=== PATIENT | male | born 1965 | race Caucasian/White ===

== ENCOUNTER 2023-05-22 23:25 | Inpatient (IN) | payer OTHER ==
[2023-05-23 00:19] VITALS: BMI 25.2
[2023-05-23] MEDS ORDERED: GLUCAGON 1 MG/VIAL IM PRN (01:03)
[2023-05-23] MEDS ORDERED: D50W 25 GM/50 ML SYRINGE IV PRN (01:03)
[2023-05-23] MEDS ORDERED: D10W 125 ML IV PRN (01:07)
[2023-05-23] MEDS ORDERED: MORPHINE 2 MG/ML SYR IV PRN (01:08)
[2023-05-23] MEDS ORDERED: NITROGLYCERIN 0.4 MG/TAB SL PRN (01:08)
--- NOTE | 2023-05-23 01:09 | P.HP ---
Certification for Inpatient Patient admitted to: Inpatient With expected LOS: >2 Midnights Practitioner: I am a practitioner with admitting privileges, knowledge of patient current condition, hospital course, and medical plan of care. Services: Services provided to patient in accordance with Admission requirements found in Title 42 Section 412.3 of the Code of Federal Regulations Patient History Date of Service: 05/23/23 Reason for admission: Chest pain unstable angina History of Present Illness: Patient is 58 years of age with a history of coronary artery disease and a stent placement in 2013 started having some palpitations and chest discomfort for the past 3 days has become progressively worse recently prior to that he was doing fine patient denies any shortness of breath former smoker Allergies ceftriaxone Allergy (Verified 05/22/23 23:51) Anaphylaxis Penicillins Allergy (Verified 05/22/23 23:51) Shortness of breath Home Medications: Amitriptyline HCl 100 mg PO BEDTIME 05/23/23 Baclofen 20 mg PO SEECOM 05/23/23 Clopidogrel Bisulfate [Plavix*] 75 mg PO DAILY 05/23/23 Divalproex Sodium 500 mg PO DAILY 05/23/23 Docusate Sodium 100 mg PO BID 05/23/23 Famotidine 20 mg PO DAILY 05/23/23 Furosemide 20 mg PO DAILY 05/23/23 Hydrocodone 5/APAP 325 [[place] 5/325*] 1 tab PO BID 05/23/23 Insulin Glargine-Yfgn 50 unit SQ BID 05/23/23 Insulin Regular, Human [Novolin R] 100 unit IJ SEECOM 05/23/23 Lactulose 30 ml PO Q12H 05/23/23 Lisinopril [Zestril] 2.5 mg PO DAILY 05/23/23 Mag Hydroxide 8% [Milk Of Magnesia] 400 mg PO Q24H PRN 05/23/23 Metoprolol Succinate [Toprol Xl*] 50 mg PO BEDTIME 05/23/23 Rivaroxaban [Xarelto] 20 mg PO DAILY 05/23/23 Zolpidem Tartrate [Zolpidem Tartrate ER] 12.5 mg PO BEDTIME 05/23/23 polyethylene glycoL 3350 [Polyethylene Glycol 3350] 17 gm PO DAILY 05/23/23 - Past Medical/Surgical History Has patient received pneumonia vaccine in the past: Yes -: Stroke with right-sided hemiparesis -: Coronary artery disease -: Diabetes -: Hypertension -: Hyperlipidemia -: Stent - Social History Smoking Status: Former smoker Review of Systems 10-point ROS is otherwise unremarkable Physical Examination - Vital Signs Temperature: 98.4 F Blood Pressure: 166/73 Pulse: 111 Respirations: 18 Pulse Ox (%): 98 - Physical Exam General: Alert, Oriented x3 HEENT: Atraumatic Neck: Supple Respiratory: Clear to auscultation bilaterally, Normal air movement Cardiovascular: No edema, Regular rate/rhythm, Normal S1 S2 Gastrointestinal: Normal bowel sounds, Soft and benign Musculoskeletal: No clubbing, No swelling Integumentary: No rashes, No breakdown Neurological: Other (Patient has right-sided hemiparesis from a formal stroke) Assessment and Plan - Problems (Diagnosis) (1) Unstable angina Current Visit: Yes Status: Acute Plan: Patient is 58 years of age admitted with chest pain and palpitations for the past 3 days has become worse recently history of coronary artery disease stent placement diabetes hypertension he is a former smoker currently his A1c is very elevated labs reviewed normal renal function patient was transferred from [facility] plan to admit start on Lovenox beta-blockers aspirin to his insulin and some of his home meds telemetry cardiology consult lipid profile - Advance Directives Does patient have a Living Will: No Does patient have a Durable POA for Healthcare: No
[2023-05-23] MEDS: ENOXAPARIN 100 MG/ML SYR SQ SCH (01:45)
[2023-05-23] MEDS: ASPIRIN EC 81 MG TAB PO SCH (01:45)
[2023-05-23] MEDS: AMITRIPTYLINE 50 MG TAB PO SCH (01:46)
[2023-05-23] MEDS: lisinopriL 5 MG TAB PO SCH (01:46)
[2023-05-23] MEDS: METOPROLOL XL 50 MG TAB PO SCH (01:46)
[2023-05-23] MEDS: ZOLPIDEM TARTRATE 10 MG TABLET PO PRN (02:55)
--- NOTE | 2023-05-23 07:13 | RAD REPORT ---
EXAM DESCRIPTION: RAD - Chest Single View - 05/23/2023 7:02 am CLINICAL HISTORY: Chest pain COMPARISON: No comparisons FINDINGS: Lines: None. Lungs: No evidence of edema or pneumonia. Pleural: No significant pleural effusions or pneumothorax. Cardiac: The heart size is within normal limits. Mediastinum: Within normal limits. Bones: No acute fractures. Other: None IMPRESSION: No acute cardiopulmonary disease.
[2023-05-23 07:22] LABS: Protime INR 1.37
[2023-05-23 07:40] LABS: Albumin 2.9 g/dL (3.4-5.0); Albumin/Globulin Ratio 0.6 (1.1-1.8); Anion Gap 8.8 mEq/L (5.0-15.0); Bilirubin Total 0.4 mg/dL (0.2-1.0); Globulin 4.8 g/dL (2.3-3.5); Potassium 3.8 mEq/L (3.5-5.1); Protein, Total 7.7 g/dL (6.4-8.2); Troponin High Sensitivity 16.8 pg/mL (<58.9)
[2023-05-23] MEDS: FUROSEMIDE 20 MG TABLET PO SCH (08:19)
[2023-05-23] MEDS: FAMOTIDINE 20 MG TAB PO SCH (08:20)
[2023-05-23] MEDS: DIVALPROEX DR 500MG TAB PO SCH (08:21)
[2023-05-23] MEDS: DOCUSATE NA 100 MG CAP PO SCH (08:21)
[2023-05-23] MEDS: INSULIN REGULAR (HUMAN) 100 UNIT/ML SQ SCH (09:58)
[2023-05-23] MEDS: INSULIN GLARGINE 100 UNIT/ML SQ SCH (09:58)
--- NOTE | 2023-05-23 17:29 | P.PN ---
Subjective Chief Complaint: Chest pain unstable angina Physical Examination - Vital Signs Temperature: 98.2 F Blood Pressure: 124/59 Pulse: 89 Respirations: 18 Pulse Ox (%): 97 - Studies Laboratory Data (last 24 hrs) 05/23/23 05/23/23 07:02 07:02 PT 14.9 H INR 1.37 Sodium 139 Potassium 3.8 BUN 13 Creatinine 0.82 Glucose 192 H Total Bilirubin 0.4 AST 8 L ALT 27 Alkaline Phosphatase 94 Triglycerides 111 Cholesterol 63 HDL Cholesterol 21 L Cholesterol/HDL Ratio 3.00 Assessment & Plan - Advance Directives Does patient have a Living Will: No Does patient have a Durable POA for Healthcare: No
[2023-05-23] MEDS: HYDROCODONE/APAP 5/325 MG TAB PO PRN (17:57)
[2023-05-23] MEDS: ZOLPIDEM TARTRATE 10 MG TABLET PO SCH (20:43)
--- NOTE | 2023-05-24 07:01 | RAD REPORT ---
EXAM DESCRIPTION: RAD - Chest Single View - 05/24/2023 6:21 am CLINICAL HISTORY: Chest pain COMPARISON: Chest Single View dated 05/23/2023 FINDINGS: Lines: None. Lungs: No evidence of edema or pneumonia. Pleural: No significant pleural effusions or pneumothorax. Cardiac: The heart size is within normal limits. Mediastinum: Within normal limits. Bones: No acute fractures. Other: None IMPRESSION: No acute cardiopulmonary disease.
[2023-05-24 07:06] LABS: Absolute Basophils 0.1 K/uL (0-0.5); Absolute Eosinophils 0.2 K/uL (0-0.5); Absolute Lymphocytes (CBC) 4.4 K/uL (0.7-4.9); Basophils % 0.8 % (0-1.3); Eosinophils % 1.5 % (0-4.4); Hematocrit 40.1 % (39.6-49.0); Hemoglobin 13.7 g/dL (13.6-17.9); Lymphocytes % 39.2 % (15.3-44.8); MCV 86.7 fL (80-100); MPV 7.6 fL (7.6-11.3); Platelets 240 thou/uL (152-406); RBC Red Blood Cell Count 4.62 M/uL (4.33-5.43)
[2023-05-24 07:46] LABS: Albumin/Globulin Ratio 0.7 (1.1-1.8); Anion Gap 7.9 mEq/L (5.0-15.0); Bilirubin Total 0.5 mg/dL (0.2-1.0); C-Reactive Protein 10.6 mg/L (<3.00); Globulin 4.4 g/dL (2.3-3.5); Potassium 3.9 mEq/L (3.5-5.1); Protein, Total 7.4 g/dL (6.4-8.2); Troponin High Sensitivity 13.6 pg/mL (<58.9)
--- NOTE | 2023-05-24 09:25 | P.PN ---
Subjective Date of Service: 05/24/23 Chief Complaint: Chest pain unstable angina Subjective: No C/O voiced, Improving Review of Systems 10-point ROS is otherwise unremarkable Cardiovascular: Chest Pain, Palpitations Physical Examination - Vital Signs Temperature: 98.2 F Blood Pressure: 115/51 Pulse: 90 Respirations: 16 Pulse Ox (%): 95 - Physical Exam General: Alert, In no apparent distress, Oriented x3 HEENT: Atraumatic, Normocephalic Neck: 2+ carotid pulse no bruit Respiratory: Clear to auscultation bilaterally, Normal air movement Cardiovascular: Normal pulses Capillary refill: <2 Seconds Gastrointestinal: Soft and benign Musculoskeletal: Other (right hemiparesis/contracture) Integumentary: Other (heel protectors continue) Neurological: Normal speech, Abnormal strength, Abnormal tone Lymphatics: No axilla or inguinal lymphadenopathy External genitalia: Deferred Rectal: Deferred - Studies Laboratory Data (last 24 hrs) 05/24/23 05/24/23 06:52 06:52 WBC 11.30 H Hgb 13.7 Hct 40.1 Plt Count 240 Sodium 135 L Potassium 3.9 BUN 14 Creatinine 0.88 Glucose 143 H Magnesium 2.0 Total Bilirubin 0.5 AST 10 L ALT 24 Alkaline Phosphatase 83 Assessment And Plan - Plan Assessment and Plan - Problems (Diagnosis) (1) Unstable angina Current Visit: Yes Status: Acute Plan: Patient is 58 years of age admitted with chest pain and palpitations for the past 3 days. History of coronary artery disease, stent placement, diabetes, hypertension. Left sided CVA ten years ago. Right upper and lower deficits. He is a former smoker. Transferred from [facility]. Plan to admit, start on Lovenox,continue Nevibolol, aspirin, and place on SSI, home meds, telemetry, cardiology consult, lipid profile Discharge Plan: [facility] Plan to discharge in: 48 Hours
[2023-05-24] MEDS: ACETAMINOPHEN 500 MG TAB PO PRN (21:30)
[2023-05-25 05:39] LABS: Absolute Basophils 0.1 K/uL (0-0.5); Absolute Eosinophils 0.1 K/uL (0-0.5); Absolute Lymphocytes (CBC) 3.6 K/uL (0.7-4.9); Basophils % 0.8 % (0-1.3); Eosinophils % 1.1 % (0-4.4); Hematocrit 40.3 % (39.6-49.0); Hemoglobin 13.6 g/dL (13.6-17.9); Lymphocytes % 31.2 % (15.3-44.8); MCV 86.4 fL (80-100); MPV 7.5 fL (7.6-11.3); Platelets 200 thou/uL (152-406); RBC Red Blood Cell Count 4.66 M/uL (4.33-5.43)
[2023-05-25 06:04] LABS: Albumin/Globulin Ratio 0.7 (1.1-1.8); Anion Gap 8.8 mEq/L (5.0-15.0); Bilirubin Total 0.6 mg/dL (0.2-1.0); Globulin 4.4 g/dL (2.3-3.5); Potassium 3.8 mEq/L (3.5-5.1); Protein, Total 7.4 g/dL (6.4-8.2)
--- NOTE | 2023-05-25 10:21 | P.PN ---
Subjective Date of Service: 05/25/23 Chief Complaint: Chest pain unstable angina Admitted with chest pain, unstable angina, palpitations, normal sinus rhythm rate 64 occasional trigeminy - Physical Exam General: Alert, In no apparent distress, Oriented x3 HEENT: Atraumatic, Normocephalic Neck: 2+ carotid pulse no bruit Respiratory: Clear to auscultation bilaterally, Normal air movement Cardiovascular: Normal pulses Capillary refill: <2 Seconds Gastrointestinal: Soft and benign Musculoskeletal: Other (right hemiparesis/contracture) Integumentary: Other (heel protectors continue) Neurological: Normal speech, Abnormal strength, Abnormal tone Lymphatics: No axilla or inguinal lymphadenopathy Review of Systems per HPI Physical Examination - Vital Signs Temperature: 98.4 F Blood Pressure: 107/47 Pulse: 64 Respirations: 18 Pulse Ox (%): 96 - Studies Laboratory Data (last 24 hrs) 05/25/23 05/25/23 05:05 05:05 WBC 11.40 H Hgb 13.6 Hct 40.3 Plt Count 200 Sodium 136 Potassium 3.8 BUN 20 H Creatinine 0.90 Glucose 131 H Total Bilirubin 0.6 AST 16 ALT 24 Alkaline Phosphatase 84 Assessment And Plan - Plan Assessment plan Unstable angina Chest pain rule out [place] Palpitations Telemetry, Lovenox 1 mg/kg, card consult, Transferred from [facility]. Plan to admit, start on Lovenox,continue Nevibolol, aspirin, and place on SSI, home meds, telemetry, 3/4 NPO stress ordered History of coronary artery disease, PCI stent placement HTN resume home mesds diabetes SSI, resume home meds HX Left sided CVA ten years ago. Right upper and lower deficits. He is a former smoker Full code diet [facility] Discharge Plan: Home - Code Status/Comfort Care Code Status: Full Code Critical Care: No Time Spent Managing PTS Care (In Minutes): 35
--- NOTE | 2023-05-25 11:32 | P.CNS ---
Date of Consult: 05/25/23 Chief Complaint: Chest pain unstable angina History of Present Illness: Patient with PMH of CAD s/p PCI 2013, also he got history of palpitations but not officially diagnosed with AF, Stroke back in with right side paralysis, lives in a [facility], presented with palpitations that has been going on for few days associated with some chest tightness, denies any other cardiac symptoms. patient usually follows up with Dr. Selby at [place]. Allergies apixaban [From Eliquis] Allergy (Verified 05/23/23 06:58) Hives/Rash ceftriaxone Allergy (Verified 05/22/23 23:51) Anaphylaxis Penicillins Allergy (Verified 05/22/23 23:51) Shortness of breath Home Medications: Amitriptyline HCl 100 mg PO BEDTIME 05/23/23 Baclofen 20 mg PO SEECOM 05/23/23 Clopidogrel Bisulfate [Plavix*] 75 mg PO DAILY 05/23/23 Divalproex Sodium 500 mg PO DAILY 05/23/23 Docusate Sodium 100 mg PO BID 05/23/23 Famotidine 20 mg PO DAILY 05/23/23 Furosemide 20 mg PO DAILY 05/23/23 Hydrocodone 5/APAP 325 [[place] 5/325*] 1 tab PO BID 05/23/23 Insulin Glargine-Yfgn 50 unit SQ BID 05/23/23 Insulin Regular, Human [Novolin R] 100 unit IJ SEECOM 05/23/23 Lactulose 30 ml PO Q12H 05/23/23 Lisinopril [Zestril] 2.5 mg PO DAILY 05/23/23 Mag Hydroxide 8% [Milk Of Magnesia] 400 mg PO Q24H PRN 05/23/23 Metoprolol Succinate [Toprol Xl*] 50 mg PO BEDTIME 05/23/23 Rivaroxaban [Xarelto] 20 mg PO DAILY 05/23/23 Zolpidem Tartrate [Zolpidem Tartrate ER] 12.5 mg PO BEDTIME 05/23/23 polyethylene glycoL 3350 [Polyethylene Glycol 3350] 17 gm PO DAILY 05/23/23 - Past Medical/Surgical History Diabetic: Yes -: Stroke with right-sided hemiparesis -: Coronary artery disease -: Diabetes -: Hypertension -: Hyperlipidemia -: BPH -: UTI -: Chronic embolism/thrombosis -: Seizure -: Stent - Social History Alcohol use: No CD- Drugs: No Caffeine use: Yes Place of Residence: Shelter Review of Systems 10-point ROS is otherwise unremarkable Physical Examination Temp Pulse Resp BP Pulse Ox 98.4 F 64 18 107/47 L 96 05/25/23 10:20 05/25/23 10:20 05/25/23 10:20 05/25/23 10:20 05/25/23 10:20 General: Alert, Oriented x3 HEENT: Atraumatic Neck: Supple, JVD not distended Respiratory: Clear to auscultation bilaterally Cardiovascular: No edema, Regular rate/rhythm, Normal S1 S2 Gastrointestinal: Normal bowel sounds Laboratory Data (last 24 hrs) 05/25/23 05/25/23 05:05 05:05 WBC 11.40 H Hgb 13.6 Hct 40.3 Plt Count 200 Sodium 136 Potassium 3.8 BUN 20 H Creatinine 0.90 Glucose 131 H Total Bilirubin 0.6 AST 16 ALT 24 Alkaline Phosphatase 84 - Problems (1) PVC (premature ventricular contraction) Current Visit: Yes Status: Acute Plan: patient got high PVC burden in [place]ig[place] pattern. will need ischemia evaluation since he got history of CAD agree with Toprol XL 50 mg po BID Continue Plavix 75 mg daily plan is to resume Xarelto after heart cath (patient is not sure why it is listed on his medications list) also advised patient that he need to coordinate 30 days monitor with his automation qa analyst as an outpatient. (2) Unstable angina Current Visit: Yes Status: Acute Plan: Continue ASA and Plavix Ischemia evaluation.
[2023-05-25] MEDS ORDERED: REGADENOSON 0.4 MG/5 ML SYR IV ONE (13:14)
--- NOTE | 2023-05-25 15:45 | RAD REPORT ---
EXAM DESCRIPTION: NM - Rest Stress Cardiac Imaging - 05/25/2023 1:45 pm CLINICAL HISTORY: CP COMPARISON: No comparisons TECHNIQUE: The patient was administered approximately 9.6 mCi of Tc 99m Sestamibi prior to resting S PECT imaging of the heart. The patient was then administered approximately 31 mCi of Tc 99m Sestamibi following exercise or pharmacologic stress. Multiplanar SPECT images were reviewed. FINDINGS: No stress induced ischemic defect is seen to suggest stress induced ischemia. Large areas of fixed defect involving the apex, septal wall, most of the anterior wall, and the basal aspect of t he inferior wall. The end diastolic volume is 76 ml, the end systolic volume is 37 ml, and the ejection fraction is 51 %. IMPRESSION: No evidence of stress induced ischemia. Large areas of fixed defect as above, suggestive of sequelae of remote infarcts. Left ventricular ejection fraction near the lower limit of normal, 51%.
--- NOTE | 2023-05-26 06:52 | P.PN ---
Subjective Date of Service: 05/26/23 Chief Complaint: Chest pain unstable angina Admitted with chest pain, unstable angina, palpitations, normal sinus rhythm rate 64 occasional trigeminy - Physical Exam General: Alert, In no apparent distress, Oriented x3 HEENT: Atraumatic, Normocephalic Neck: 2+ carotid pulse no bruit Respiratory: Clear to auscultation bilaterally, Normal air movement Cardiovascular: Normal pulses Capillary refill: <2 Seconds Gastrointestinal: Soft and benign Musculoskeletal: Other (right hemiparesis/contracture) Integumentary: Other (heel protectors continue) Neurological: Normal speech, Abnormal strength, Abnormal tone Lymphatics: No axilla or inguinal lymphadenopathy Review of Systems per HPI Physical Examination - Vital Signs Temperature: 98.0 F Blood Pressure: 142/68 Pulse: 73 Respirations: 20 Pulse Ox (%): 95 Assessment And Plan - Plan Assessment plan Unstable angina Chest pain rule out [place] Palpitations Telemetry, Lovenox 1 mg/kg, card consult, Transferred [facility]. Plan to admit, start on Lovenox,continue Nevibolol, aspirin, and place on SSI, home meds, telemetry, 3/ NPO stress ordered 3/ Left heart cath ischemia workup Dr. Hernandez History of coronary artery disease, PCI stent placement HTN resume home mesds diabetes SSI, resume home meds HX Left sided CVA ten years ago. Right upper and lower deficits. He is a former smoker Full code diet [facility]ic Discharge Plan: Longterm - Code Status/Comfort Care Code Status: Full Code Critical Care: No Time Spent Managing PTS Care (In Minutes): 35
[2023-05-26 06:56] LABS: Absolute Eosinophils 0.1 K/uL (0-0.5); Absolute Lymphocytes (CBC) 3.1 K/uL (0.7-4.9); Basophils % 0.6 % (0-1.3); Eosinophils % 1.8 % (0-4.4); Hematocrit 38.2 % (39.6-49.0); Hemoglobin 12.9 g/dL (13.6-17.9); Lymphocytes % 38.8 % (15.3-44.8); MCV 86.7 fL (80-100); MPV 7.9 fL (7.6-11.3); Platelets 184 thou/uL (152-406)
--- NOTE | 2023-05-26 07:02 | TREADPHA ---
DX: CHEST PAIN Date of Study: 05/25/2023 Ht: 6' 2 " Wt: 196 lb 5 oz Consulting Physician: DESTINEE MEDICATIONS: ASPIRIN, NORCO, ELAVIL, LOVENOX, NOVOLIN-R, PRINIVIL, NITROSTAT, TOPROL XL HISTORY: TWO CARDIAC STENTS TEN YEARS AGO. STROKE RIGHT SIDED PARALYSIS. DIABETES MELLITUS, HYPERTENSION, HYPERLIPIDEMIA PHYSICIAL EXAMINATION: RESTING B.P.: 148/76 RESTING H.R.: 98 RESTING EKG: NORMAL SINUS RHYTHM, INCOMPLETE RIGHT BUNDLE BRANCH BLOCK PROTOCOL: PHARMACOLOGIC EXERCISE TIME: 3:30 B.P. AT [place] STRESS: 133/49 IMPRESSION: LEXISCAN STRESS TEST PREFORMED ORDERED. CARDIOLITE INJECTED PER PROTOCOL. NO CHEST PAIN, NO SUPRAVENTRICULAR TACHYCARDIA, NO VENTRICULAR TACHYCARDIA, PREMATURE VENTRICULAR COMPLEXES NOTED PRE STRESS TESTM DURING AND POST. NO ELECTROCARDIOGRAM CHANGES WITH LEXISCAN.
[2023-05-26 07:14] LABS: Albumin 2.9 g/dL (3.4-5.0); Albumin/Globulin Ratio 0.7 (1.1-1.8); Anion Gap 8.6 mEq/L (5.0-15.0); Bilirubin Total 0.5 mg/dL (0.2-1.0); Globulin 4.2 g/dL (2.3-3.5); Potassium 3.6 mEq/L (3.5-5.1); Protein, Total 7.1 g/dL (6.4-8.2)
--- NOTE | 2023-05-26 11:03 | P.DS ---
Admission Date: 05/22/23 Discharge Date: 05/26/23 Disposition: ROUTINE DISCHARGE Discharge Condition: GOOD Reason for Admission: Chest pain unstable angina Brief History of Present Illness: 58 years of age with a history of hypertension, CAD, diabetes, hyperlipidemia, previous PCI coronary artery disease and a stent placement in 2013 started having some palpitations and chest discomfort for the past 3 days has become progressively worse recently prior to that he was doing fine patient denies any shortness of breath former smoker General: Alert, Oriented x3 HEENT: Atraumatic Neck: Supple Respiratory: Clear to auscultation bilaterally, Normal air movement Cardiovascular: No edema, Regular rate/rhythm, Normal S1 S2 Gastrointestinal: Normal bowel sounds, Soft and benign Musculoskeletal: No clubbing, No swelling Integumentary: No rashes, No breakdown Neurological: Other (Patient has right-sided hemiparesis from a formal stroke) Hospital Course: 58 year-old male patient with a past medical history of CVA, hypertension, hyperlipidemia, CAD, diabetes, prior stent placement presented with chest pain. Was noted to have unstable angina, abnormal EKG.Condition improved with therapeutic Lovenox 1 mg/kg, aspirin, statin, beta-ajay. Was evaluated by cardiology Dr. Wu had a nuclear stress test, per cardiology was started on Plavix 75 daily, metoprolol XL 50 twice daily, resume Xarelto after cardiac cath. Patient tolerating diet, stable for discharge to home with follow-up appointment with primary care physician, follow-up with cardiology 1 to 2 weeks after discharge PROBLEM: Unstable angina Abnormal EKG-PVCs with trigeminy pattern Post stress test normal sinus rhythm with incomplete right bundle branch block, noted PVCs before and after stress test. With no EKG changes with stress test. Continue Toprol 50 , Plavix 75 daily, Resume Xarelto 20 mg daily Start aspirin 81 mg daily Continue home medicines as previously prescribed Follow-up with cardiology in [address] Selby at [place] GOAL: Clear understanding of disease process INSTRUCTIONS: Physician Discharge Instructions: -Follow-up with PCP in 1 to 2 weeks -Please call Dr. Tesfaye at [phone] if any questions regarding hospital stay -Please call nursing station at [phone] if any nursing or medication questions -Return to the emergency room if symptoms worsen Diet: ADA, low sodium Activity: Fall precautions Vital Signs/Physical Exam: Temp Pulse Resp BP Pulse Ox 99.3 F 65 14 112/55 L 95 05/26/23 08:00 05/26/23 09:38 05/26/23 08:00 05/26/23 09:38 05/26/23 08:00 Laboratory Data at Discharge: WBC 8.10 thou/uL (4.3-10.9) 05/26/23 06:15 Hgb 12.9 g/dL (13.6-17.9) L 05/26/23 06:15 Hct 38.2 % (39.6-49.0) L 05/26/23 06:15 Plt Count 184 thou/uL (152-406) 05/26/23 06:15 PT 14.9 SECONDS (9.5-12.5) H 05/23/23 07:02 INR 1.37 05/23/23 07:02 Sodium 136 mEq/L (136-145) 05/26/23 06:15 Potassium 3.6 mEq/L (3.5-5.1) 05/26/23 06:15 BUN 18 mg/dL (7-18) 05/26/23 06:15 Creatinine 0.83 mg/dL (0.70-1.30) 05/26/23 06:15 Glucose 151 mg/dL (74-106) H 05/26/23 06:15 Magnesium 2.0 mg/dL (1.6-2.4) 05/24/23 06:52 Total Bilirubin 0.5 mg/dL (0.2-1.0) 05/26/23 06:15 AST 16 U/L (15-37) 05/26/23 06:15 ALT 32 U/L (16-61) 05/26/23 06:15 Alkaline Phosphatase 81 U/L (45-117) 05/26/23 06:15 Triglycerides 111 mg/dL (<150) 05/23/23 07:02 Cholesterol 63 mg/dL (<200) 05/23/23 07:02 HDL Cholesterol 21 mg/dL (40-60) L 05/23/23 07:02 Cholesterol/HDL Ratio 3.00 05/23/23 07:02 Home Medications: Amitriptyline HCl 100 mg PO BEDTIME 05/23/23 Baclofen 20 mg PO SEECOM 05/23/23 Clopidogrel Bisulfate [Plavix*] 75 mg PO DAILY 05/23/23 Divalproex Sodium 500 mg PO DAILY 05/23/23 Docusate Sodium 100 mg PO BID 05/23/23 Famotidine 20 mg PO DAILY 05/23/23 Furosemide 20 mg PO DAILY 05/23/23 Hydrocodone 5/APAP 325 [[place] 5/325*] 1 tab PO BID 05/23/23 Insulin Glargine-Yfgn 50 unit SQ BID 05/23/23 Insulin Regular, Human [Novolin R] 100 unit IJ SEECOM 05/23/23 Lactulose 30 ml PO Q12H 05/23/23 Lisinopril [Zestril] 2.5 mg PO DAILY 05/23/23 Mag Hydroxide 8% [Milk Of Magnesia*] 400 mg PO Q24H PRN 05/23/23 Metoprolol Succinate [Toprol Xl*] 50 mg PO BEDTIME 05/23/23 Rivaroxaban [Xarelto] 20 mg PO DAILY 05/23/23 Zolpidem Tartrate [Zolpidem Tartrate ER] 12.5 mg PO BEDTIME 05/23/23 polyethylene glycoL 3350 [Polyethylene Glycol 3350] 17 gm PO DAILY 05/23/23 Aspirin [Aspirin EC 81 MG] 162 mg PO DAILY #30 tab 05/25/23 New Medications: Aspirin [Aspirin EC 81 MG] 162 mg PO DAILY #30 tab Physician Discharge Instructions: -DC IV and DC back to [facility] -Follow-up with PCP in 1 to 2 weeks -Follow-up with Cardiology in 1 to 2 weeks -Please call Dr. Tesfaye at [phone] if any questions regarding hospital stay -Please call nursing station at [phone] if any nursing or medication questions -Return to the emergency room if symptoms worsen Diet: AHA Activity: Fall precautions Followup: Kyler Selby MD [Primary Care Provider] - Time spent managing pt's care (in minutes): 55
[2023-05-26 12:05] VITALS: BP 107/47; TEMP 98.4
[2023-05-26 12:32] VITALS: O2SAT 95
== END 2023-05-26 09:55 | DRG 303 ==
LOC: 2ND 23:25
PROVIDERS: ADMIT Hospitalist; ATTEND Hospitalist
DX: I25.110 Atherosclerotic heart disease of native coronary artery with unstable angina pectoris (principal); I69.351 Hemiplegia and hemiparesis following cerebral infarction affecting right dominant side; I10 Essential (primary) hypertension; E78.5 Hyperlipidemia, unspecified; E11.9 Type 2 diabetes mellitus without complications; I49.3 Ventricular premature depolarization; I45.10 Unspecified right bundle-branch block; N40.0 Benign prostatic hyperplasia without lower urinary tract symptoms; Z95.5 Presence of coronary angioplasty implant and graft; Z88.0 Allergy status to penicillin; Z88.1 Allergy status to other antibiotic agents; Z79.4 Long term (current) use of insulin; Z79.82 Long term (current) use of aspirin; Z79.02 Long term (current) use of antithrombotics/antiplatelets; Z79.899 Other long term (current) drug therapy; Z87.891 Personal history of nicotine dependence
CPT/HCPCS: 36415; 71045; 78452; 80053; 80061; 82947; 83735; 83880; 84484; 85025; 85610; 86140; 93017; A9500; J1650; J1815; J2785